=== PATIENT | female | born 1950 | race Caucasian/White ===

== ENCOUNTER → 2017-06-07 | Outpatient (CLI) | payer MEDICARE, OTHER ==
[~2017-06-07] MED LIST: ASPI-496 PO; FIBER PO; LISI-170 PO; MULT-752 PO; TRAM50TA2 PO
[2017-06-07 11:46] LABS: BASOPHILS # (AUTO) 0.04 x10^3/uL (0-0.1); BASOPHILS % (AUTO) 1 % (0-1); EOSINOPHILS # (AUTO) 0.06 x10^3/uL (0-0.4); EOSINOPHILS % (AUTO) 1 % (1-7); LYMPHOCYTES % (AUTO) 23 % (22-44); MD NO; MEAN CORPUSCULAR HEMOGLOBIN 34.2 pg (27.0-34.8); MEAN CORPUSCULAR HGB CONC 33.7 g/dL (32.4-35.8); MEAN CORPUSCULAR VOLUME 101.5 fL (80-100); MEAN PLATELET VOLUME 8.3 fL (7.4-10.4); MONOCYTES # (AUTO) 0.44 x10^3/uL (0.2-0.8); MONOCYTES % (AUTO) 6 % (2-9); NEUTROPHILS # (AUTO) 5.16 x10^3/uL (1.8-6.8); NEUTROPHILS % (AUTO) 70 % (42-75); PLATELET COUNT 252 x10^3/uL (130-400); RED CELL DISTRIBUTION WIDTH 14.1 % (9.6-15.2)
[2017-06-07 11:47] LABS: MICROSCOPIC NOT IND
[2017-06-07 11:52] LABS: CULTURE INDICATED? NO
[2017-06-07 12:05] LABS: ALBUMIN 3.8 g/dL (3.4-5.0); ANION GAP 9 mmol/L (5-15); CALCIUM 9.7 mg/dL (8.5-10.1); CHLORIDE 105 mmol/L (98-107)
[2017-06-07 12:08] LABS: ALANINE AMINOTRANSFERASE 22 U/L (12-78); ALKALINE PHOSPHATASE 127 U/L (45-117); BILIRUBIN,TOTAL 0.7 mg/dL (0.2-1.0); CREATININE 1.01 mg/dL (0.55-1.02); TOTAL PROTEIN 8.1 g/dL (6.4-8.2)
== END | disposition home or self-care (01) ==
LOC: STAR 10:18
PROVIDERS: ATTEND Orthopaedic Surgery
DX: Z01.818 Encounter for other preprocedural examination (principal); M16.11 Unilateral primary osteoarthritis, right hip
CPT/HCPCS: 36415; 80053; 81003; 85025; 87081; 93005

== ENCOUNTER 2019-09-25 10:04 | Outpatient (CLI) | payer MEDICARE, OTHER ==
[~2019-09-25 10:04] MED LIST changes: +Calcium PO; +FEXO-64 PO; +MONT10TA11 PO; +NAPR220C2 PO
[2019-09-25] MEDS ORDERED: ACET-1600 PO (10:41)
[2019-09-25] MEDS ORDERED: FAMO-79 PO (10:41)
[2019-09-25] MEDS ORDERED: CALC1CAP8 PO (10:41)
[2019-09-25] MEDS ORDERED: DIPH25CA61 PO (10:41)
[2019-09-25 11:19] LABS: BASOPHILS # (AUTO) 0.03 x10^3/uL (0-0.1); BASOPHILS % (AUTO) 1 % (0-1); EOSINOPHILS # (AUTO) 0.12 x10^3/uL (0-0.4); EOSINOPHILS % (AUTO) 2 % (1-7); LYMPHOCYTES # (AUTO) 1.61 x10^3/uL (1-3.4); LYMPHOCYTES % (AUTO) 26 % (22-44); MD NO; MEAN CORPUSCULAR VOLUME 103.3 fL (80-100); MEAN PLATELET VOLUME 8.9 fL (7.4-10.4); MONOCYTES # (AUTO) 0.46 x10^3/uL (0.2-0.8); MONOCYTES % (AUTO) 7 % (2-9); NEUTROPHILS # (AUTO) 4.02 x10^3/uL (1.8-6.8); NEUTROPHILS % (AUTO) 64 % (42-75); PLATELET COUNT 213 x10^3/uL (130-400); RED BLOOD COUNT 3.92 x10^6/uL (3.82-5.3); RED CELL DISTRIBUTION WIDTH 12.8 % (9.6-15.2)
[2019-09-25 11:22] LABS: ALBUMIN 4.3 g/dL (3.4-5.0); ANION GAP 7 mmol/L (5-15); CALCIUM 10.4 mg/dL (8.5-10.1); CHLORIDE 109 mmol/L (98-107)
[2019-09-25 11:28] LABS: ALANINE AMINOTRANSFERASE 19 U/L (12-78); ALKALINE PHOSPHATASE 72 U/L (45-117); BILIRUBIN,TOTAL 0.6 mg/dL (0.2-1.0); CREATININE 1.31 mg/dL (0.55-1.02); TOTAL PROTEIN 8.1 g/dL (6.4-8.2)
== END 2019-09-25 23:59 | disposition home or self-care (01) ==
LOC: STAR 10:04
PROVIDERS: ATTEND Orthopaedic Surgery
DX: Z01.818 Encounter for other preprocedural examination (principal); M16.12 Unilateral primary osteoarthritis, left hip; M25.552 Pain in left hip
CPT/HCPCS: 36415; 80053; 85025; 87081; 87635; 93005

== ENCOUNTER 2019-09-29 06:59 | Observation (INO) | payer MEDICARE, OTHER ==
[~2019-09-29] VITALS: Ht 170.2 cm; Wt 83.0 kg
[~2019-09-29 06:59] MED LIST changes: +ACET-1600 PO; +CALC1CAP8 PO; +DIPH25CA61 PO; +EPINEPHRINE 1 MG/ML, 1ML ONE; +FAMO-79 PO; +KETOROLAC 60 MG/2 ML ONE; +ROPIvacaine/PF 0.2%, 20 ML ONE; +TRANEXAMIC ACID 100 MG/ML, 10ML ONE
[2019-09-29] MEDS ORDERED: LACTATED RINGERS 1,000 ML IV SCH (07:23)
[2019-09-29] MEDS ORDERED: CHLORHEXIDINE 15 ML UDC MM ONE (07:30)
[2019-09-29 07:48] VITALS: BP 138/81
[2019-09-29] MEDS ORDERED: MIDAZOLAM 1 MG/ML, 2ML ONE ×2 (08:26→09:33)
[2019-09-29] MEDS ORDERED: FENTANYL PF 250 MCG/5ML ONE (08:27)
[2019-09-29] MEDS ORDERED: ACETAMINOPHEN 500 MG TABLET ONE ×2 (08:45→09:18)
[2019-09-29] MEDS ORDERED: GABAPENTIN 300 MG CAPSULE ONE ×2 (08:45→09:18)
[2019-09-29] MEDS ORDERED: D5%-0.45% NACL 1,000 ML IV SCH (10:51)
[2019-09-29] MEDS ORDERED: OXYcodone IR 5MG TABLET PO PRN (11:00)
[2019-09-29] MEDS ORDERED: SENNA/DOCUSATE TABLET PO PRN (11:00)
[2019-09-29] MEDS ORDERED: ALUMINUM/MAG/SIMETHICONE 30 ML UDC PO PRN (11:00)
[2019-09-29] MEDS ORDERED: ACETAMINOPHEN 500 MG TABLET PO SCH (11:00)
[2019-09-29] MEDS ORDERED: PROMETHAZINE 12.5 MG SUPP PR PRN (11:00)
[2019-09-29] MEDS ORDERED: POLYETHYLENE GLYCOL 17 GM PACKET PO PRN (11:00)
[2019-09-29] MEDS ORDERED: ZOLPIDEM 5MG TABLET PO PRN (11:00)
[2019-09-29] MEDS ORDERED: HYDROmorphone 1 MG/ML, 1ML INJ IVPush PRN ×2 (11:00→11:30)
[2019-09-29] MEDS ORDERED: ONDANSETRON 4 MG TABLET PO PRN (11:00)
[2019-09-29] MEDS ORDERED: DIAZEPAM 5 MG TABLET PO PRN (11:00)
[2019-09-29] MEDS ORDERED: MAGNESIUM HYDROXIDE 8%, 30ML UDC PO PRN (11:00)
[2019-09-29] MEDS ORDERED: PROMETHAZINE 25 MG/ML, 1ML IM PRN (11:00)
[2019-09-29] MEDS ORDERED: BISACODYL 10 MG SUPP PR PRN (11:00)
[2019-09-29] MEDS ORDERED: ONDANSETRON 2MG/ML, 2ML IV PRN (11:00)
[2019-09-29] MEDS ORDERED: PSYLLIUM PACKET PO PRN (11:00)
[2019-09-29] MEDS ORDERED: DIPHENHYDRAMINE 50 MG CAPSULE PO PRN (11:00)
[2019-09-29] MEDS ORDERED: MEPERIDINE/PF 25MG/ML,1ML ONE (11:05)
[2019-09-29] MEDS ORDERED: TRANEXAMIC ACID 1,000 MG in SODIUM CHLORIDE 0.9% 100 ML IVPB ONE (11:15)
[2019-09-29] MEDS ORDERED: DEXAMETHASONE 4 MG/ML, 1ML ONE (11:16)
[2019-09-29] MEDS ORDERED: SUCCINYLCHOLINE 20 MG/ML, 10ML ONE (11:16)
[2019-09-29] MEDS ORDERED: NEOSTIGMINE 1 MG/ML, 10ML ONE (11:16)
[2019-09-29] MEDS ORDERED: PROPOFOL 10 MG/ML, 20ML ONE (11:16)
[2019-09-29] MEDS ORDERED: ROCURONIUM 10MG/ML,5ML ONE (11:16)
[2019-09-29] MEDS ORDERED: ONDANSETRON 2MG/ML, 2ML ONE (11:16)
[2019-09-29] MEDS ORDERED: CEFAZOLIN 1,000 MG ONE (11:16)
[2019-09-29] MEDS ORDERED: GLYCOPYRROLATE 0.2MG/1ML, 5ML ONE (11:16)
[2019-09-29] MEDS ORDERED: MIDAZOLAM 1 MG/ML, 2ML IV PRN (11:30)
[2019-09-29] MEDS ORDERED: PROMETHAZINE 25 MG/ML, 1ML IVPush PRN (11:30)
[2019-09-29] MEDS ORDERED: MEPERIDINE/PF 25MG/0.5ML IVPush PRN (11:30)
[2019-09-29] MEDS ORDERED: ONDANSETRON 2MG/ML, 2ML IVPush PRN (11:30)
[2019-09-29] MEDS ORDERED: LABETALOL 5MG/ML, 20ML IV PRN (11:30)
[2019-09-29] MEDS ORDERED: OXYcodone 5 MG/5 ML ORAL.SOL UDC PO PRN (11:30)
[2019-09-29] MEDS ORDERED: FENTANYL PF 100 MCG/2ML IV PRN (11:30)
[2019-09-29] MEDS ORDERED: ALBUTEROL SULFATE 2.5 MG/3 ML NPPB PRN (11:30)
[2019-09-29] MEDS ORDERED: hydrALAzine 20 MG/ML, 1ML IV PRN (11:30)
[2019-09-29 12:30] VITALS: BP 143/82
[2019-09-29] MEDS: CALCIUM/VITAMIN D3 250-125 TABLET PO SCH ×2 (12:40→17:08)
[2019-09-29] MEDS ORDERED: SODIUM CHLORIDE 0.9%, 250ML IVBOLUS ONE (14:30)
[2019-09-29] MEDS ORDERED: ASPIRIN 81 MG TABLET EC PO SCH (15:30)
[2019-09-29] MEDS ORDERED: KETOROLAC 30 MG/1 ML IV SCH (16:30)
[2019-09-29] MEDS ORDERED: CEFAZOLIN PMX 2GM/50ML 50 ML IVPB SCH (17:00)
[2019-09-29] MEDS ORDERED: FERROUS SULFATE 325 MG TABLET PO SCH (18:00)
[2019-09-29] MEDS ORDERED: DOCUSATE 100 MG CAPSULE PO SCH (21:00)
[2019-09-30] MEDS ORDERED: DEXAMETHASONE 4 MG/ML, 1ML IVPush ONE (06:00)
[2019-09-30] MEDS ORDERED: ASCORBIC ACID 500 MG TABLET PO SCH (09:00)
[2019-09-30] MEDS ORDERED: MULTIVITAMINS/MINERALS TABLET PO SCH (09:00)
== END 2019-09-29 19:50 | disposition home or self-care (01) ==
LOC: OUT 06:59 → ORIP 10:51 → 4NE 12:14
PROVIDERS: ADMIT Orthopaedic Surgery; ATTEND Orthopaedic Surgery
DX: M16.12 Unilateral primary osteoarthritis, left hip (principal); I10 Essential (primary) hypertension; Z79.899 Other long term (current) drug therapy; Z87.891 Personal history of nicotine dependence; Z96.652 Presence of left artificial knee joint; Z96.641 Presence of right artificial hip joint; Z79.82 Long term (current) use of aspirin
CPT/HCPCS: 27130; 36415; 72170; 86850; 86900; 96365; 96375; 97161; 97165; C1713; C1776; G0378; J0171; J0690; J1885; J2175; J2250; J2405; J2704; J2795; J3010; J7050; J7120; 87635; J1100; J2710; J0330